=== PATIENT | female | born 1995 | race Asian ===

== ENCOUNTER 2017-11-23 20:01 | Emergency (ER) | payer OTHER ==
[2017-11-23] MEDS: HYDROCODONE/APAP (10/325) TAB PO (22:51)
[2017-11-23] MEDS: ONDANSETRON (ODT) 4 MG TAB ODT (22:52)
[2017-11-24] MEDS: ETOMIDATE 20 MG INJ IV (00:07)
[2017-11-24] MEDS ORDERED: ETOMIDATE 20 MG INJ (00:34)
== END 2017-11-24 01:40 | disposition home or self-care (01) ==
LOC: FTE 20:01 → E/R 11-24 01:40
DX: S43.004A Unspecified dislocation of right shoulder joint, initial encounter (principal); W01.0XXA Fall on same level from slipping, tripping and stumbling without subsequent striking against object, initial encounter; Y92.9 Unspecified place or not applicable
CPT/HCPCS: 23650; 73020; 73030-RT; 94770; 99285-25